=== PATIENT | male | born 1995 | race Hispanic/Latino ===

== ENCOUNTER 2022-09-05 23:34 | Emergency (ER) | payer SELFPAY ==
[2022-09-05 23:38] VITALS: BP 137/78; PULSE 76; RESP 16; TEMP 36.8; O2SAT 100
[2022-09-06] MEDS: LIDOCAINE HCL 1% LOCAL INJ 10 ML VIAL 5 ML INFILTRATE (00:16)
--- NOTE | 2022-09-06 00:31 | ED.SKABFB ---
HPI - Skin/Abscess/Foreign Bdy General Chief complaint: Skin/Abscess/Foreign Body Stated complaint: lump in groin Time Seen by Provider: 09/05/22 23:40 History of Present Illness HPI narrative: 26-year-old male reports for evaluation of an abscess in his right groin x3 days. Patient states he noticed about 3 days ago, however today it is gotten larger and started to drain with increased pain. He denies scrotal involvement or swelling, urinary complaints, abdominal pain, nausea, vomiting, fevers, body aches or chills. Related Data Allergies Allergy/AdvReac Type Severity Reaction Status Date / Time No Known Allergies Allergy Verified 09/05/22 23:35 Review of Systems Review of Systems: CONSTITUTIONAL: Denies fever, chills EYES: Denies visual changes, redness, or discharge. ENT: Denies rhinorrhea, congestion, sore throat, or otalgia. CARDIOVASCULAR: Denies chest pain, palpitations, or edema. RESPIRATORY: Denies cough or dyspnea. GASTROINTESTINAL: Denies abdominal pain, nausea, vomiting, or diarrhea. GENITOURINARY: Denies dysuria or hematuria. SKIN: See HPI MUSCULOSKELETAL: Denies back pain, joint pain, or myalgia. NEUROLOGIC: Denies headache, numbness, dizziness, or weakness. PSYCHIATRIC: Denies anxiety or depression. Exam Narrative: GENERAL: Well-appearing, in no acute distress. HEAD: Normocephalic NECK: Supple. CHEST: No respiratory distress. Clear to auscultation, no adventitious breath sounds. HEART: Regular rate and rhythm. No murmur heard. Normal peripheral pulses. ABDOMEN: Soft, nontender, normal active bowel sounds. EXTREMITIES: Normal range of motion. No edema. SKIN: 4x1cm area of fluctuation in the R inguinal fold with surrounding induration and warmth, actively draining purulent discharge. No scrotal or penile involvement, edema or crepitus to perineum. NEURO: No focal deficits. Alert and oriented x3. PSYCH: Normal mood and affect. Course Vital Signs Vital signs: Vital Signs Temperature 98.2 F 09/05/22 23:38 Pulse Rate 76 09/05/22 23:38 Respiratory Rate 16 09/05/22 23:38 Blood Pressure 137/78 09/05/22 23:38 Pulse Oximetry 100 09/05/22 23:38 Oxygen Delivery Room Air 09/05/22 23:38 Temperature 98.2 F 09/05/22 23:38 Pulse Rate 76 09/05/22 23:38 Respiratory Rate 16 09/05/22 23:38 Blood Pressure 137/78 09/05/22 23:38 Pulse Oximetry 100 09/05/22 23:38 Oxygen Delivery Room Air 09/05/22 23:38 Procedures Abscess I/D other: Side (if applicable): right Local Anesthetic: lidocaine 1% Amount of anesthesia used (mL): 4 Technique: incised with #11 blade Amount of fluid expressed (mL): 5 Irrigation: No Packing used?: iodoform I&D Results: Pus and Blood MDM - Skin/Abscess/Foreign Bdy MDM Narrative Medical decision making narrative: 26-year-old male reports for evaluation of an abscess to his right inguinal fold x3 days. Vital stable, he is afebrile. No scrotal or penile involvement, no signs of Jaimee's gangrene. Abscess I indeed with purulent drainage. Abscess packed. Wound culture collected and pending. Patient received first dose of Bactrim in the ED. Bactrim sent to pharmacy. Advised patient to remove packing in 2 days and follow-up with PCP within the week. PCP referral provided. Encouraged Tylenol and ibuprofen for pain control. Strict ED return precautions discussed. Patient agrees with the plan verbalizes understand. Discharged in stable condition. Discharge Plan Discharge Clinical Impression: Abscess Patient Disposition: Home, Self-Care Condition: Stable Instructions: Antibiotic Form, Abscess (ED) Additional Instructions: You were evaluated in the emergency department for an abscess in your groin. It was drained and packed. Please remove the packing in 2 days. Please take the antibiotics as prescribed. You can keep the area covered if you would like, keep it clean and d
[2022-09-06] MEDS: SULFAMETHOXAZOLE/TRIMETHOPRIM 800/160 MG DS TABLET 1 TAB PO (00:39)
[2022-09-06] MEDS: HYDROcodone/acetaminophen (*CRX) 5-325 MG TABLET 1 TAB PO (00:43)
[2022-09-06 00:46] VITALS: BP 135/77; PULSE 78; RESP 16; O2SAT 100
== END 2022-09-06 00:49 | disposition home or self-care (01) ==
PROVIDERS: Emergency Provider Physician Assistant
DX: L02.214 Cutaneous abscess of groin (principal)
CPT/HCPCS: 10061; 87070; 87077; 87186; 87205; 99283; A9270

== ENCOUNTER 2024-06-10 21:43 | Emergency (ER) | payer SELFPAY ==
[2024-06-10 21:47] VITALS: BP 131/72; PULSE 81; RESP 18; TEMP 37; O2SAT 100
--- NOTE | 2024-06-11 01:17 | ED.GENADULT ---
HPI - General Adult General Chief complaint: Skin/Abscess/Foreign Body Stated complaint: right groin pain Time Seen by Provider: 06/11/24 01:12 History of Present Illness HPI narrative: Patient is a 28-year-old gentleman who presents emergency department with chief complaint of pain and swelling in the right inguinal crease. Patient reports that it was swollen tender and reports that is now draining pus patient reports no fever denies injury to the area Related Data Allergies Allergy/AdvReac Type Severity Reaction Status Date / Time No Known Allergies Allergy Verified 06/10/24 21:44 Review of Systems Review of Systems: A 10 system review of systems was completed on the patient and is negative except for what is stated in the HPI. Nursing and ancillary documentation was reviewed. Exam Narrative: GENERAL: Well-appearing, well-nourished, and in no acute distress. HEAD: Normocephalic, atraumatic. EYES: PERRLA and EOMI. ENT: Nares clear, no rhinorrhea or epistaxis. Mucous membranes moist. NECK: Supple. CHEST: Clear to auscultation. No respiratory distress. HEART: Regular rate and rhythm. No murmur heard. Normal peripheral pulses. ABDOMEN: Soft, nontender, nondistended, normal active bowel sounds. EXTREMITIES: Normal range of motion. No edema. : There is no scrotal erythema there is no scrotal tenderness SKIN: Warm, dry, no rash. There is a draining abscess present in the right inguinal fold NEURO: No focal deficits. Alert and oriented x3. PSYCH: Normal mood and affect. Course Vital Signs Vital signs: Vital Signs Temperature 37.0 C 06/10/24 21:47 Pulse Rate 81 06/10/24 21:47 Respiratory Rate 18 06/10/24 21:47 Blood Pressure 131/72 06/10/24 21:47 Pulse Oximetry 100 06/10/24 21:47 Oxygen Delivery Room Air 06/10/24 21:47 Temperature 37.0 C 06/10/24 21:47 Pulse Rate 81 06/10/24 21:47 Respiratory Rate 18 06/10/24 21:47 Blood Pressure 131/72 06/10/24 21:47 Pulse Oximetry 100 06/10/24 21:47 Oxygen Delivery Room Air 06/10/24 21:47 Medical Decision Making [facility] Narrative Medical decision making narrative: Differential diagnosis includes abscess, cellulitis The abscess is currently draining at this point patient will be started on doxycycline and Keflex Vital Signs Vital Signs: Vital Signs Temperature 37.0 C 06/10/24 21:47 Pulse Rate 81 06/10/24 21:47 Respiratory Rate 18 06/10/24 21:47 Blood Pressure 131/72 06/10/24 21:47 Pulse Oximetry 100 06/10/24 21:47 Oxygen Delivery Room Air 06/10/24 21:47 Temperature 37.0 C 06/10/24 21:47 Pulse Rate 81 06/10/24 21:47 Respiratory Rate 18 06/10/24 21:47 Blood Pressure 131/72 06/10/24 21:47 Pulse Oximetry 100 06/10/24 21:47 Oxygen Delivery Room Air 06/10/24 21:47 Discharge Plan Discharge Clinical Impression: Cellulitis, Abscess of groin, right Patient Disposition: Home, Self-Care Condition: Stable Instructions: Antibiotic Form, Cellulitis (ED), Abscess (ED) Patient Language: Indian Prescriptions: New doxycycline hyclate 100 mg tablet 100 mg PO BID Qty: 14 0RF cephalexin 500 mg capsule 500 mg PO QID 7 Days Qty: 28 0RF No Action sulfamethoxazole-trimethoprim 800-160 mg tablet 1 tablet PO Q12H Qty: 7 0RF Follow-up/Referrals: PHYSICIAN,VIDEO PHOTOGRAPHER [Primary Care Provider] - Elvis Lee MD [Physician] - Time of Disposition: :
[2024-06-11] MEDS: DOXYCYCLINE HYCLATE 100 MG TABLET PO (01:33)
[2024-06-11] MEDS: CEPHALEXIN 500 MG CAPSULE PO (01:33)
[2024-06-11 01:37] VITALS: BP 138/72; PULSE 91; RESP 15; O2SAT 100
== END 2024-06-11 01:38 | disposition home or self-care (01) ==
LOC: ANHED 06-11 01:21
PROVIDERS: Emergency Provider Emergency Medicine
DX: L02.214 Cutaneous abscess of groin (principal); L03.314 Cellulitis of groin
CPT/HCPCS: 99283; A9270